=== PATIENT | female | born 1975 | race Caucasian/White ===

== ENCOUNTER → 2019-11-28 08:51 | Outpatient (CLI) | payer BC, SELFPAY ==
--- NOTE | 2019-11-28 09:00 | US_ITS ---
PROCEDURE: US ABDOMEN LIMITED CLINICAL INDICATION: ABD PAIN,CHRONIC,RUQ COMPARISON: No exams were available for comparison FINDINGS: PANCREAS: Unremarkable. No obvious mass or abnormal fluid collection. No ductal dilatation LIVER: No focal liver lesions demonstrated. Homogeneous echogenicity. No intrahepatic biliary ductal dilatation evident. There is appropriate direction of blood flow within a non dilated portal vein RIGHT KIDNEY: Unremarkable. Normal size and echogenicity. No hydronephrosis GALLBLADDER: There is an 8 mm hyperechoic focus along the posterior wall the gallbladder. This did not move on different positioning and did not shadow and may be related to a polyp or an inherent area of tumefactive sludge. Common bile duct is normal diameter at 2 mm. No gallbladder wall thickening, pericholecystic fluid, or gallstones. IMPRESSION: Gallbladder polyp versus adherent tumefactive sludge. No stones or other significant anomaly Dictated by: Gamal Weaver MD 11/28/2019 09:44 Gamal Weaver MD in [place] 11/28/2019 09:44
== END ==
PROVIDERS: PCP Physician Assistant; Visit Provider Nurse Practitioner Family
DX: R10.11 Right upper quadrant pain (principal)
CPT/HCPCS: 76705

== ENCOUNTER → 2019-12-08 08:47 | Outpatient (CLI) | payer BC, SELFPAY ==
--- NOTE | 2019-12-08 08:53 | FL_ITS ---
PROCEDURE: FL UPPER GI W AIR CLINICAL INDICATION: EPIGASTRIC PAIN COMPARISON: No exams were available for comparison TECHNIQUE: FLUOROSCOPY TIME : 1 minutes and 31 seconds FINDINGS: The esophagus, stomach, and duodenum have an unremarkable appearance.There is no evidence of hiatal hernia. No ulcer or mass evident. There is some mild nodularity of the mucosa in the duodenal bulb which may be seen with duodenitis. No obvious ulcer is evident. There is normal peristalsis. The duodenal C-loop is nondisplaced. IMPRESSION: Possible duodenitis otherwise negative upper GI. Dictated by: Gamal Weaver MD 12/08/2019 11:00 Gamal Weaver MD in [place] 12/08/2019 11:01
== END ==
PROVIDERS: PCP Physician Assistant; Visit Provider Nurse Practitioner Family
DX: R10.13 Epigastric pain (principal)
CPT/HCPCS: 74246

== ENCOUNTER → 2019-12-18 10:09 | Outpatient (CLI) | payer BC, SELFPAY ==
--- NOTE | 2019-12-18 10:14 | NM_ITS ---
PROCEDURE: NM HEPATOBILIARY W PHARM CLINICAL INDICATION: ABD PAIN,CHRONIC, RUQ COMPARISON: No exams were available for comparison TECHNIQUE: DOSE: 8.69 mCi technetium Choletec and 1.4 mcg of CCK FINDINGS: Homogeneous activity is present within the hepatic parenchyma. Activity is present in the gallbladder by 5 minutes. There was some delay in visualization of the small bowel showing up on the gallbladder ejection fraction images at 1 hour and 9 minutes. The gallbladder ejection fraction is calculated to be 21 percent. There was some pain reported with CCK infusion. IMPRESSION: 1. No evidence of cystic duct obstruction. 2. Mild delay in small bowel visualization. Low gallbladder ejection fraction with some pain reported with CCK infusion which may be seen with gallbladder dyskinesia. Please correlate with clinical parameters. Dictated by: Gamal Weaver MD 12/19/2019 11:40 Gamal Weaver MD in [place] 12/19/2019 11:40
== END ==
PROVIDERS: PCP Nurse Practitioner Family; Visit Provider Nurse Practitioner Family
DX: R10.11 Right upper quadrant pain (principal)
CPT/HCPCS: 78227; A9537; J2805